=== PATIENT | female | born 1945 | race Caucasian/White ===

== ENCOUNTER 2025-06-29 15:34 | Inpatient (IN) ==
--- NOTE | 2025-06-29 16:43 | Emergency Department Note ---
Impression & Plan Dyspnea on exertion ED Provider Note HISTORY OF PRESENT ILLNESS: Patient is a 79-year-old female presenting with shortness of breath. Patient reports that she has not been feeling well for the last month. Reports that about a month ago she started having pain in her left lower quadrant and was having diarrhea. She states that she has been having progressively worsening weakness over the last month. Denies any measured fevers at home. Reports that she has had progressively worsening shortness of breath and is unable to walk more than a few steps at a time before having to stop and catch her breath. She states that 2 days ago she was trying to bring groceries into the house and it took her 3 hours to unload a few bags of groceries from her car. She denies any cough or recent sick contact exposures. She reports that she has been sleeping anywhere from 14 to 18 hours a day for the last few weeks secondary to profound fatigue and weakness. She states that she went to her primary care provider's office today and she became hypoxic with an ambulatory pulse ox and they referred her to the emergency department. Patient denies any anticoagulation use. She does have an isolated history of a DVT in her right lower extremity. She reports she stopped taking her anticoagulation a number of years ago secondary to having hematuria and hematemesis. ROS: as above PHYSICAL EXAM: Constitutional: Patient appears in no acute distress. HENT: Head: Normocephalic and atraumatic. Eyes: EOMI, PERRL Mouth/Throat: Mucous membranes moist. Neck: Trachea midline. Neck supple. Cardiovascular: RRR, No murmurs, rubs or gallops. Intact distal pulses. Pulmonary/Chest: No respiratory distress. Breath sounds clear and equal bilaterally. Patient is conversationally dyspneic. Tachypneic. She is able to only speak 1 or 2 words at a time before having to pause to catch her breath. Abdominal: Abdomen soft, no tenderness, rebound or guarding. Musculoskeletal: No edema, tenderness or deformity noted. Skin: Warm and dry. No rash, erythema, pallor or cyanosis Psychiatric: Appropriate mood and affect for situation. Neurological: Alert and keenly responsive. CN II-XII grossly intact, moving all extremities equally and fully. MDM: - Vitals signs stable. - History obtained via patient. History as above. - Chronic conditions affecting care: CKD; DM-2; HLD; breast cancer (s/p R mastectomy and chemo) - Differential diagnoses include, but are not limited to: Congestive heart failure; acute coronary syndrome; COPD/asthma exacerbation; pulmonary edema; pulmonary embolism; pneumonia; pneumothorax; viral syndrome - Order placed for continuous cardiac monitoring. At this time, monitor showed rate of 74 bpm with normal sinus rhythm, per my interpretation. - External medical records reviewed. Primary care visit note dated today was reviewed. Patient was seen for shortness of breath and dyspnea on exertion. She had oxygen saturations of 93% during examination at rest and with a 2-minute walk test her heart rate went up to 128 bpm and oxygen saturations down to 92%. She was referred to the emergency department for further evaluation. - EKG image interpreted by myself showed normal rhythm. Rate 83 bpm. QT 338. No acute ischemic changes. - Laboratory workup interpreted by myself showed normal WBC; normal PT/INR; stable electrolytes; elevated anion gap (12); elevated total bilirubin (1.2) with normal AST/ALT; normal troponin; normal BNP - CXR image reviewed by myself is negative for pneumonia, per my interpretation. - CT PE negative for PE. Noted to have coronary atherosclerosis. - Patient ambulated for about 40 feet and had a pulse ox of 90%. She became very tachypneic without respiratory rate of 27 and became tachycardic with a heart rate of 120 bpm. - Discussion was had with caseworker about patient's case and need for admission - Hospitalist, Dr. Solis, consulted for admission at 19:30. Recommended that the patient be given a DuoNeb treatment and Solu-Medrol dosing which is ordered. - [facility] ASSESSMENT AND PLAN: Diagnosis: Dyspnea on exertion Plan: admit Past Med/Surg History Problem List (Updated 06/29/25 @ 19:33 by Kamilah Camacho MD) Dyspnea on exertion (Acute) Hiatal hernia with GERD Vitamin B12 deficiency Osteoarthritis of right knee Urgency-frequency syndrome Urge incontinence of urine Screening mammogram, encounter for Urinary incontinence (Chronic) Medicare annual wellness visit, subsequent Hypokalemia Screening for osteoporosis Left flank pain History of mastectomy Chronic kidney disease, stage III (moderate) Diaphragmatic hernia Diverticulosis Fatty liver Mixed hyperlipidemia 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 RLS (restless legs syndrome) Type 2 diabetes mellitus Vitamin D deficiency Nephrolithiasis (Chronic) Hyperlipidemia Benign essential hypertension CKD stage 2 due to type 2 diabetes mellitus Diabetes mellitus Medical History Breast cancer Nephrolithiasis Surgical History History of varicose vein ligation History of cystocele History of tubal ligation History of repair of rectocele History of lithotripsy History of hysterectomy History of esophagogastroduodenoscopy (EGD) History of colonoscopy History of cholecystectomy History of cataract surgery Family History Mother Heart disease Hypertension Lung cancer Lung disease Cancer Breast cancer Sister Diabetes Cancer Father Diabetes Hypertension Kidney disease Brother Lymphoma Cancer Aunt Breast cancer Denies family history of Ovarian cancer Prostate cancer Myocardial infarction Colorectal cancer Social History Smoking Status: Never smoker Second Hand Exposure: No; Do You Dip or Chew Tobacco: No; Hx Alcohol Use: No Hx Substance Use: No Preferred Language: Sami Communication Ability: Effective Visual Impairment: Partially Limited Hearing Ability: Hard of Hearing Front Worker Required: No marital status: Current Living Situation: Alone How many Children do You have: 2 Feels Safe at Home: Yes Childhood Exposure to Second-Hand Smoke: Yes Diet: regular caffeine: Yes during the past year weight has: remained stable Dental Care, Regularly: No Physical Activity Frequency: 1-2 Times per Week Physical Activity Frequency Comment: rick Henry Seatbelt Use: always Sunscreen Use: Yes Gender Identity: Female Assistive Devices: Glasses Allergies Allergies Allergy/AdvReac Type Severity Reaction Status Date / Time pegfilgrastim [From Neulasta] Allergy Severe COULDN'T Verified 06/29/25 18:57 BREATH, CHEST PAIN, DIZZINESS Home Meds Home Medications Medication Instructions Recorded Confirmed vitamins A,C,[id number]-xxxb-tmvnen 4,296 1 cap PO BID 06/29/25 06/29/25 mcg-226 mg-90 mg capsule (PreserVision AREDS) Previous Rx's Medication Instructions Recorded aspirin 81 mg tablet,delayed 81 mg PO DAILY #90 tabs 06/22/19 release metformin 750 mg tablet,extended 750 mg PO DAILY #90 tabs 12/28/24 release 24 hr mecobalamin (vitamin B12) 10,000 1,000 mcg IM MONTHLY #1 ea 04/19/25 mcg solution for injection Breast prosthesis with Bra #1 ea 04/29/25 Breast prosthesis with Bra #1 ea 04/29/25 blood sugar diagnostic (Accu-Chek #100 ea 06/29/25 Guide test strips) blood-glucose meter (Accu-Chek #1 ea 06/29/25 Guide Me Glucose Meter) glipizide 5 mg tablet, extended 5 mg PO DAILY #90 tabs 06/29/25 release 24 hr lancets (Accu-Chek Softclix #100 ea 06/29/25 Lancets) omeprazole 20 mg tablet,delayed 20 mg PO DAILY #90 tabs 06/29/25 release rosuvastatin 20 mg tablet 20 mg PO DAILY #90 tabs 06/29/25 valsartan 160 mg tablet 160 mg PO DAILY #90 tabs 06/29/25 Results & Data (ED) Vital Signs Vital Signs - 24 hr 06/29/25 15:46 06/29/25 15:46 06/29/25 16:11 Temperature 36.6 C Temperature Source Oral Pulse Rate 82 82 Pulse Rate [Exercises] Pulse Rate [Right Finger] Pulse Rhythm [Right Finger] Pulse Strength [Right Finger] Respiratory Rate 20 Respiratory Rate [Exercises] Respiratory Effort / Characteristics Spontaneous Respiratory Depth Normal Blood Pressure 118/87 Blood Pressure [Right Arm] Blood Pressure Mean 97 Blood Pressure Mean [Right Arm] Blood Pressure Position [Right Arm] Pulse Oximetry 99 Pulse Oximetry [Exercises] Oxygen Delivery Method Sepsis Recent Fever Within 48 Hours No Sepsis New/Unexplained Change in Mental Status No Sepsis Action Taken by Nursing No Action Required 06/29/25 16:31 06/29/25 17:57 06/29/25 18:01 Temperature Temperature Source Pulse Rate 91 H 74 Pulse Rate [Exercises] Pulse Rate [Right Finger] 81 Pulse Rhythm [Right Finger] Regular Pulse Strength [Right Finger] Normal Respiratory Rate 20 18 13 Respiratory Rate [Exercises] Respiratory Effort / Characteristics Labored Short of Breath Respiratory Depth Blood Pressure 125/61 149/112 H Blood Pressure [Right Arm] 100/77 Blood Pressure Mean 94 141 Blood Pressure Mean [Right Arm] 84 Blood Pressure Position [Right Arm] Sitting Pulse Oximetry 99 100 100 Pulse Oximetry [Exercises] Oxygen Delivery Method Room Air Sepsis Recent Fever Within 48 Hours Sepsis New/Unexplained Change in Mental Status Sepsis Action Taken by Nursing 06/29/25 18:31 06/29/25 19:12 Temperature Temperature Source Pulse Rate 83 Pulse Rate [Exercises] 120 H Pulse Rate [Right Finger] Pulse Rhythm [Right Finger] Pulse Strength [Right Finger] Respiratory Rate 16 Respiratory Rate [Exercises] 27 H Respiratory Effort / Characteristics Respiratory Depth Blood Pressure 168/97 H Blood Pressure [Right Arm] Blood Pressure Mean 110 Blood Pressure Mean [Right Arm] Blood Pressure Position [Right Arm] Pulse Oximetry 97 Pulse Oximetry [Exercises] 90 Oxygen Delivery Method Room Air Sepsis Recent Fever Within 48 Hours Sepsis New/Unexplained Change in Mental Status Sepsis Action Taken by Nursing Laboratory Data 06/29/25 15:57 06/29/25 15:57 Lab Results 06/29/25 06/29/25 Range/Units 15:57 16:40 WBC 9.70 (4.8-10.8) K/ul RBC 4.69 (4.20-5.40) M/uL Hgb 14.0 (12.0-16.0) g/dl Hct 42.7 (37.0-47.0) % MCV 91.0 (80.0-100.0) fL MCH 29.9 (25.0-34.0) pg MCHC 32.8 (32.0-36.0) g/dL RDW Std Deviation 41.9 (36.4-46.3) fL RDW Coeff of Ashley 12.9 (11.5-14.5) % Plt Count 358 (130-400) K/uL MPV 10.2 (9.4-12.4) fL Immature Gran % (Auto) 0.2 % Neut % (Auto) 69.3 % Lymph % (Auto) 23.2 % [place] % (Auto) 6.2 % Eos % (Auto) 0.6 % Baso % (Auto) 0.5 % Neut # (Auto) 6.72 H (1.40-6.50) K/uL Lymph # (Auto) 2.25 (1.20-3.40) K/uL [place] # (Auto) 0.60 H (0.11-0.59) K/uL Eos # (Auto) 0.06 (0.00-0.50) K/uL Baso # (Auto) 0.05 (0.00-0.20) K/uL Immature Gran # (Auto) 0.02 (0.01-0.20) K/uL PT 11.1 (9.0-12.0) Seconds INR 1.0 (0.9-1.1) APTT 25 (21-31) Seconds PTT Ratio 0.9 Sodium 139 (136-145) mmol/L Potassium 4.3 (3.5-5.1) mmol/L Chloride 103 (98-107) mmol/L Carbon Dioxide 24 (21-32) mmol/L Anion Gap 12 H (3-11) BUN 18 (6-23) mg/dl Creatinine 1.04 (0.6-1.2) mg/dl Est Cr Clr Drug Dosing 49.5 ml/min eGFR 55.36 BUN/Creatinine Ratio 17.3 (10-20) Glucose 174 H (70-99(Fasting)) mg/dl Calcium 10.1 (8.6-10.3) mg/dl Total Bilirubin 1.2 H (0.2-1.0) mg/dl AST 15 (13-39) U/L ALT 16 (7-52) U/L Alkaline Phosphatase 65 (34-104) U/L Troponin I High Sens 6.6 (0-14) pg/ml B-Natriuretic Peptide 27 (0-100) pg/ml Total Protein 7.7 (6.0-8.3) gm/dl Albumin 4.0 (3.4-5.0) gm/dl Globulin 3.7 (2.5-4.0) gm/dl Albumin/Globulin Ratio 1.1 (0.9-2) Administered Medications Discontinued Medications Ioversol (Optiray 320 125ml) 118 ml IV ONCE ONE Stop: 06/29/25 17:51 Last Admin: 06/29/25 17:50 Dose: 118 ml Documented By: [facility] Data Radiologist's Impression: Chest X-Ray 06/29/25 16:13 Clinical History: Chest pain Technique: A frontal view of the chest was obtained Findings: There are no confluent pulmonary infiltrates. The heart size is within normal limits. No pleural effusion or pneumothorax is seen. There is no definite pulmonary nodule. No fracture is noted. No foreign body is seen Impression: No active disease Electronically signed by Chin Trivedi 06-29-2025 6:43 PM Chest CTA 06/29/25 16:40 Clinical history: Rule out pulmonary embolism Technique: Axial computed tomography images were obtained of the chest after the administration of intravenous contrast according to the CT angiogram protocol Findings: There is no definite sign of pulmonary embolism. There are 2 small nodular opacities in the left lung apex, measuring 2-3 mm. There is a 2 mm nodule in the right lung apex. There are 2 faint 2 mm nodules adjacent to the right minor fissure. There is a 2 mm nodular opacity along the top of the right major fissure. There is mild dependent subsegmental atelectasis in both lower lobes. There is no pleural effusion or pneumothorax. There is no sign of pulmonary fibrosis or other diffuse interstitial process. No endobronchial lesion is seen There is no mediastinal, hilar, or axillary adenopathy. The thoracic aorta appears unremarkable with no sign of aneurysm or dissection. There is no pericardial effusion. There is extensive coronary atherosclerosis The gallbladder has been removed. No fracture is seen. No focal osseous lesion is evident Impression: 1. No definite sign of pulmonary embolism 2. Several small pulmonary nodules, likely benign but indeterminate in nature. A follow-up chest CT could be obtained in 6 months 3. Extensive coronary atherosclerosis Electronically signed by Chin Trivedi 06-29-2025 7:22 PM Discharge Plan Visit Data Chief Complaint: Cardiac Assessment ED Provider: Kamilah Camacho Discharge Problem: Dyspnea on exertion Condition: Fair Forms Stand Alone Forms: [facility] [employer] Prescriptions Prescriptions: No Action (DME) Breast prosthesis with Bra See Rx Instructions .Route .MEDSUPPLY Qty: 1 0RF Rx Instructions: 1 prosthesis and 6 bras (DME) Breast prosthesis with Bra See Rx Instructions .Route .MEDSUPPLY Qty: 1 0RF Rx Instructions: As directed,6 bras and 1 prosthesis aspirin 81 mg tablet,delayed release (DR/EC) 81 mg PO DAILY Qty: 90 3RF PreserVision AREDS 4,296 mcg-226 mg-90 mg capsule 1 cap PO BID glipizide 5 mg tablet extended release 24hr 5 mg PO DAILY Qty: 90 1RF Rx Instructions: patient does not need immediately valsartan 160 mg tablet 160 mg PO DAILY Qty: 90 3RF Rx Instructions: patient does not need immediately omeprazole 20 mg tablet,delayed release (DR/EC) 20 mg PO DAILY Qty: 90 3RF Rx Instructions: patient does not need immediately rosuvastatin 20 mg tablet 20 mg PO DAILY Qty: 90 2RF Rx Instructions: patient does not need immediately (DME) blood-glucose meter [Accu-Chek Guide Me Glucose Mtr] Misc See Rx Instructions .Route Qty: 1 0RF Rx Instructions: use as directed once daily DX:E11.9 (DME) Accu-Chek Guide test strips Strip See Rx Instructions .Route Qty: 100 3RF Rx Instructions: use once daily as directed DX:E11.9 (DME) lancets [Accu-Chek Softclix Lancets] Misc See Rx Instructions .Route Qty: 100 3RF Rx Instructions: use once daily as directed DX:E11.9 metformin 750 mg tablet extended release 24 hr 750 mg PO DAILY Qty: 90 1RF mecobalamin (vitamin B12) 10,000 mcg recon soln 1,000 mcg IM MONTHLY Qty: 1 12RF Rx Instructions: PER PT "DEPENDS ON BLOOD RESULTS" Referrals Referrals: Ottoniel Caldera MD [Primary Care Provider] -
[2025-06-29 16:49] LABS: Hematocrit (blood only) 42.7 % (37.0-47.0); Hemoglobin 14.0 g/dl (12.0-16.0); Immature Granulocytes # (auto) 0.02 K/uL (0.01-0.20); Immature Granulocytes % (auto) 0.2 %; Mean Corpuscular Hemoglobin 29.9 pg (25.0-34.0); Mean Corpuscular Volume 91.0 fL (80.0-100.0); Platelet Count 358 K/uL (130-400); RDW Standard Deviation 41.9 fL (36.4-46.3); Red Blood Count 4.69 M/uL (4.20-5.40); White Blood Count 9.70 K/ul (4.8-10.8)
[2025-06-29 17:01] LABS: Alanine Aminotransferase 16.0 U/L (7-52); Albumin Globulin Ratio 1.1 (0.9-2); Alkaline Phosphatase 65.0 U/L (34-104); Anion Gap 12.0 (3-11); Bilirubin,Total 1.2 mg/dl (0.2-1.0); Blood Urea Nitrogen 18.0 mg/dl (6-23); Calcium 10.1 mg/dl (8.6-10.3); Carbon Dioxide 24.0 mmol/L (21-32); Chloride 103.0 mmol/L (98-107); Creatinine Clr Calc Pharmacy 49.5 ml/min; Globulin 3.7 gm/dl (2.5-4.0); Glucose 174.0 mg/dl (70-99(Fasting)); Potassium 4.3 mmol/L (3.5-5.1); Sodium 139.0 mmol/L (136-145); Total Protein 7.7 gm/dl (6.0-8.3)
[2025-06-29 17:12] LABS: INR 1.0 (0.9-1.1); Partial Thromboplastin Time 25 Seconds (21-31); Prothrombin Time 11.1 Seconds (9.0-12.0)
[2025-06-29] MEDS: OPTIRAY 320 125ml IV ONE (17:50)
--- NOTE | 2025-06-29 18:43 | XRay Report ---
Clinical History: Chest pain Technique: A frontal view of the chest was obtained Findings: There are no confluent pulmonary infiltrates. The heart size is within normal limits. No pleural effusion or pneumothorax is seen. There is no definite pulmonary nodule. No fracture is noted. No foreign body is seen Impression: No active disease Electronically signed by Chin Trivedi 06-29-2025 6:43 PM
--- NOTE | 2025-06-29 19:22 | CT Scan Report ---
Clinical history: Rule out pulmonary embolism Technique: Axial computed tomography images were obtained of the chest after the administration of intravenous contrast according to the CT angiogram protocol Findings: There is no definite sign of pulmonary embolism. There are 2 small nodular opacities in the left lung apex, measuring 2-3 mm. There is a 2 mm nodule in the right lung apex. There are 2 faint 2 mm nodules adjacent to the right minor fissure. There is a 2 mm nodular opacity along the top of the right major fissure. There is mild dependent subsegmental atelectasis in both lower lobes. There is no pleural effusion or pneumothorax. There is no sign of pulmonary fibrosis or other diffuse interstitial process. No endobronchial lesion is seen There is no mediastinal, hilar, or axillary adenopathy. The thoracic aorta appears unremarkable with no sign of aneurysm or dissection. There is no pericardial effusion. There is extensive coronary atherosclerosis The gallbladder has been removed. No fracture is seen. No focal osseous lesion is evident Impression: 1. No definite sign of pulmonary embolism 2. Several small pulmonary nodules, likely benign but indeterminate in nature. A follow-up chest CT could be obtained in 6 months 3. Extensive coronary atherosclerosis Electronically signed by Chin Trivedi 06-29-2025 7:22 PM
--- NOTE | 2025-06-29 19:27 | History & Physical Report ---
Date of Service June 29, 2025 Assessment & Plan (1) Dyspnea on exertion: (2) Type 2 diabetes mellitus: (3) Benign essential hypertension: (4) Vitamin B12 deficiency: Plan Patient is a 79-year-old female with past medical history B12 deficiency, GERD, stage III CKD, type II DM, right LE DVT, breast CA s/p mastectomy, chemo, and radiation. Patient presented due to several months of worsening dyspnea on exertion. CXR and CTA negative, troponin negative. Non-hypoxic on room air at time of admission. Patient is being admitted for further workup including echocardiogram. #dyspnea - H&H at baseline. CXR negative, CTA negative for acute changes. Tropo susan 6.6, BNP 27. EKG with new PACs, otherwise no ischemic changes. Non-hypoxic at time of admission and with clear breath sounds. - covid/flu/rsv swab ordered - mag 1.5, 2g IV ordered; trend mag - given solu-medrol 60mg IV and duo-neb x1 on admission; see if patient improves clinically regarding continuing IV steroids - duo-nebs q2h prn - echocardiogram ordered - incentive spirometry - oxygen prn for O2 < 92% - consider pt/ot evals prior to discharge #RLQ pain - reports RLQ pain and feeling fulling. LFTs WNL. - abd pelvis CT ordered - 1 L LR at 125 ml/hr ordered as patient already given IV contrast with CTA #T2DM - Controlled on glipizide and metformin at home (hold). Most recent A1C 7.9%. - SSI with target BSG range 110-180mg/dL, CF 30 #HTN - continue valsartan #GERD - continue PPI #HLD - continue statin and asa #B12 deficiency - similar symptoms when diagnosed several months ago. H&H stable. #pulmonary nodules - noted on CTA, follow up in out patient setting in 6 months. VTE ppx: Lovenox Dispo: med/tele Admission and Anticipated Discharge Date Admission Date: 06/29/25 History of Present Illness Chief Complaint: dyspnea Primary Care Provider: Ottoniel Caldera MD Patient is a 79-year-old female with past medical history B12 deficiency, GERD, stage III CKD, type II DM, right LE DVT, breast CA s/p mastectomy, chemo, and radiation. Patient presented due to several months of worsening dyspnea on exertion. CXR and CTA negative, troponin negative. Nonhypoxic on room air at time of admission. Patient is being admitted for further workup including echocardiogram. Patient seen at bedside. She was at her PCPs office today due to the dyspnea when they did an ambulatory pulse ox that showed her oxygen in the low 90s. In the ED with ambulation she reportedly had tachycardia (HR 127, and O2 sats dropped in the 90s. Patient is dyspneic while trying to obtain history after speaking only few words. She stated over the past month it has been getting worse and she can only walk a few steps until she feels short of breath. It took her 3 hours the other day to unload groceries. She has been sleeping many hours every night due to fatigue and weakness. She stated she felt similar several months ago when she was started on B12 injections however her B12 is now normal. She was taken off amlodipine, put back on, and now is off amlodipine because her blood pressures have been low. she stated she sometimes has "fuzzy vision" when going from sitting to standing however denies dizziness like the room is spinning. She occasionally has a cough due to her throat feeling dry. She denies any chest pain, orthopnea, abdominal pain, nausea, vomiting, diarrhea, lower extremity edema. She is not a former smoker. Her mother did pass away from lung cancer. She does not use any oxygen at baseline. She is due for her evening medications. She stated she used to take valsartan twice daily however now just takes in the morning because her blood pressures have been low. She does not have any advanced directives however does wish to be DNR/DNI status. Patient is not on anticoagulation after history of right lower extremity DVT in 1993 after having hematuria, hematemesis, epistaxis. Allergies Allergy/AdvReac Type Severity Reaction Status Date / Time pegfilgrastim [From Neulasta] Allergy Severe COULDN'T Verified 06/29/25 18:57 BREATH, CHEST PAIN, DIZZINESS Home Medications Medication Instructions Recorded Confirmed Type aspirin 81 mg tablet,delayed 81 mg PO DAILY #90 tabs 06/22/19 06/29/25 Rx release metformin 750 mg tablet,extended 750 mg PO DAILY #90 tabs 12/28/24 06/29/25 Rx release 24 hr mecobalamin (vitamin B12) 10,000 1,000 mcg IM MONTHLY #1 ea 04/19/25 06/29/25 Rx mcg solution for injection Breast prosthesis with Bra #1 ea 04/29/25 Rx Breast prosthesis with Bra #1 ea 04/29/25 Rx blood sugar diagnostic (Accu-Chek #100 ea 06/29/25 06/29/25 Rx Guide test strips) blood-glucose meter (Accu-Chek #1 ea 06/29/25 06/29/25 Rx Guide Me Glucose Meter) glipizide 5 mg tablet, extended 5 mg PO DAILY #90 tabs 06/29/25 06/29/25 Rx release 24 hr lancets (Accu-Chek Softclix #100 ea 06/29/25 06/29/25 Rx Lancets) omeprazole 20 mg tablet,delayed 20 mg PO DAILY #90 tabs 06/29/25 06/29/25 Rx release rosuvastatin 20 mg tablet 20 mg PO DAILY #90 tabs 06/29/25 06/29/25 Rx valsartan 160 mg tablet 160 mg PO DAILY #90 tabs 06/29/25 06/29/25 Rx vitamins A,C,J-zrtm-ndiuqt 4,296 1 cap PO BID 06/29/25 06/29/25 History mcg-226 mg-90 mg capsule (PreserVision AREDS) Past Med/Surg History Problem List (Updated 06/29/25 @ 19:33 by Kamilah Camacho MD) Dyspnea on exertion (Acute) Hiatal hernia with GERD Vitamin B12 deficiency Osteoarthritis of right knee Urgency-frequency syndrome Urge incontinence of urine Screening mammogram, encounter for Urinary incontinence (Chronic) Medicare annual wellness visit, subsequent Hypokalemia Screening for osteoporosis Left flank pain History of mastectomy Chronic kidney disease, stage III (moderate) Diaphragmatic hernia Diverticulosis Fatty liver Mixed hyperlipidemia 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 RLS (restless legs syndrome) Type 2 diabetes mellitus Vitamin D deficiency Nephrolithiasis (Chronic) Hyperlipidemia Benign essential hypertension CKD stage 2 due to type 2 diabetes mellitus Diabetes mellitus Medical History Breast cancer Nephrolithiasis Surgical History History of varicose vein ligation History of cystocele History of tubal ligation History of repair of rectocele History of lithotripsy History of hysterectomy History of esophagogastroduodenoscopy (EGD) History of colonoscopy History of cholecystectomy History of cataract surgery Family History Mother Heart disease Hypertension Lung cancer Lung disease Cancer Breast cancer Sister Diabetes Cancer Father Diabetes Hypertension Kidney disease Brother Lymphoma Cancer Aunt Breast cancer Denies family history of Ovarian cancer Prostate cancer Myocardial infarction Colorectal cancer Social History Smoking Status: Never smoker Second Hand Exposure: No; Do You Dip or Chew Tobacco: No; Hx Alcohol Use: No Hx Substance Use: No Preferred Language: Latvian Communication Ability: Effective Visual Impairment: Partially Limited Hearing Ability: Hard of Hearing Box Strapper Required: No Beliefs That Will Affect Care: None marital status: Current Living Situation: Alone How many Children do You have: 2 Other Information That Helps Us Care for You: No Feels Safe at Home: Yes Safety Concerns: Feels Safe At This Time Childhood Exposure to Second-Hand Smoke: Yes Diet: regular caffeine: Yes during the past year weight has: remained stable Dental Care, Regularly: No Physical Activity Frequency: 1-2 Times per Week Physical Activity Frequency Comment: rick Henry Seatbelt Use: always Sunscreen Use: Yes Gender Identity: Female Assistive Devices: Denture - Upper, Glasses and Oxygen - Continuous Review of Systems Review of Systems: see HPI Physical Exam Physical Exam: The patient is awake, alert and oriented 3, well developed and well nourished, normocephalic and atraumatic, dyspneic when speaking a few words. HEENT- EOMI, mucous membranes moist. Hearing grossly intact. Heart-normal S1 and S2. No murmurs, rubs or gallops. Lungs-clear bilaterally, no respiratory distress, no accessory muscle use. Abdomen-normal bowel sounds and soft. No ascites noted. Non-tender. Extremities- no clubbing, cyanosis, or edema. Rheumatologic-normal range of motion. Psychiatric-normal affect. Results & Data Results & Data Vital Signs (Past 12 Hours) Vital Signs Temp Pulse Pulse Pulse Resp Resp BP 06/29/25 19:12 120 H 27 H 06/29/25 18:31 83 16 168/97 H 06/29/25 18:01 74 13 149/112 H 06/29/25 17:57 81 18 06/29/25 16:31 91 H 20 125/61 06/29/25 16:11 82 06/29/25 15:46 36.6 C 82 20 118/87 BP Pulse Ox Pulse Ox O2 Del Method 06/29/25 19:12 90 Room Air 06/29/25 18:31 97 06/29/25 18:01 100 06/29/25 17:57 100/77 100 Room Air 06/29/25 16:31 99 06/29/25 16:11 06/29/25 15:46 99 Code Status & VTE Plan Code Status dnr/dni VTE Prophylaxis Plan VTE Prophylaxis will be ordered: Yes Supervising Physician Co-Signing Physician Notes Attending addendum: I have physically seen this patient, have supervised the PEACE's activities, and agree with the H&P unless as otherwise noted. Assessment and Plan: The patient is a 79-year-old female with past medical history including vitamin B12 deficiency, kidney stones, GERD, stage III CKD, diabetes mellitus type 2, right lower extremity DVT, breast cancer status postmastectomy, chemotherapy and radiation. She presents to the emergency department due to several months of worsening dyspnea on exertion. She is acutely short of breath with routine conversation. Workup in the emergency department including negative troponin, negative chest x-ray and CTA of chest that were negative. Patient with pulse ox 99% on room air. She also complains of right lower quadrant abdominal pain and feelings of fullness. Dyspnea/shortness of breath at rest with conversation- Workup in the emergency department including negative chest x-ray, CTA of chest, and troponin COVID/flu/RSV swab negative CT abdomen and pelvis with contrast negative DuoNebs every 2 hours as needed Patient was given Solu-Medrol 60 mg IV and DuoNeb treatment by the ED, with minimal improvement Magnesium 1.5, will receive 2 g of magnesium sulfate IV and repeat in a.m. The patient will be admitted to telemetry for serial cardiac enzymes, serial EKG's, cardiac rhythm monitoring and a 2-D echocardiogram with Dopplers. Incentive spirometry Will likely need PT/OT assessment prior to discharge Right lower quadrant pain- Reports worsening recently over the past several weeks of right lower quadrant pain and feeling of fullness Liver test normal CT abdomen and pelvis negative LR at 125 mL/h x 1 L Diabetes mellitus type 2- Hold glipizide and metformin while in hospital Placed on Accu-Cheks NovoLog SSI as noted Hypertension- Continue losartan GERD- Continue pantoprazole PG Care Time/CCT Total # of Minutes Spent Total Time Spent with Patient: Total time spent is greater than 50% in coordination of care (as documented) at patient's floor/unit and/or counseling patient: Coding Level of Care Code 85901 INT INP/OBS CARE 3/75MIN Diagnoses Dyspnea on exertion R06.09 Type 2 diabetes mellitus without complication, without long-term current use of insulin E11.9 Diabetes mellitus complication status: without complication Diabetes mellitus halfway insulin use: without technician terminal and repeater use Benign essential hypertension I10 Vitamin B12 deficiency E53.8 (2) Type 2 diabetes mellitus Diabetes mellitus complication status: without complication Diabetes mellitus halfway insulin use: without technician terminal and repeater use Qualified Code(s): E11.9 - Type 2 diabetes mellitus without complications
[2025-06-29 20:03] LABS: Magnesium 1.5 mg/dl (1.7-2.4)
[2025-06-29] MEDS: ALBUT/IPRATROP 3MG/0.5MG NEB 3 ML VIAL NEB STA (20:07)
[2025-06-29] MEDS: MAGNESIUM SULFATE / D5W 1 GM/100 ML BAG IV SCH (20:20)
[2025-06-29 20:56] LABS: Influenza A virus by PCR Negative (Neg); Influenza B virus by PCR Negative (Neg); SARS CoV2 RNA(COVID-19) Ceph NEGATIVE (Negative)
[2025-06-29] MEDS: OPTIRAY 320 100ml IV ONE (21:10)
[2025-06-29] MEDS ORDERED: CARBOHYDRATES FOR HYPOGLYCEMIA PO PRN (21:56)
[2025-06-29] MEDS ORDERED: DOCUSATE SODIUM 100 MG CAP PO PRN (21:56)
[2025-06-29] MEDS ORDERED: MELATONIN 3 MG TAB PO PRN (21:56)
[2025-06-29] MEDS ORDERED: DEXTROSE 50% 50 ML SYRINGE IV PRN (21:56)
[2025-06-29] MEDS ORDERED: GLUCOSE 10 TAB/TUBE PO PRN (21:56)
[2025-06-29] MEDS ORDERED: GLUCOSE 40% GEL 15 GM TUBE PO PRN (21:56)
[2025-06-29] MEDS ORDERED: ACETAMINOPHEN 325 MG TAB PO PRN (21:56)
[2025-06-29] MEDS ORDERED: GLUCAGON FOR INJ 1 MG VIAL SQ PRN (21:56)
[2025-06-29] MEDS ORDERED: ONDANSETRON INJ 2 MG/ML 2 ML VIAL IV PRN (21:56)
[2025-06-29] MEDS ORDERED: ALBUT/IPRATROP 3MG/0.5MG NEB 3 ML VIAL NEB PRN (21:56)
[2025-06-29] MEDS: LACTATED RINGER'S 1,000 ML IV SCH (21:57)
[2025-06-29] MEDS: INSULIN ASPART PER UNIT CHARGE SC SCH (22:53)
[2025-06-29] MEDS: ENOXAPARIN INJ 40 MG/0.4 ML SYR SQ SCH (23:39)
--- NOTE | 2025-06-30 00:37 | CT Scan Report ---
Exam(s): CT ABDOMEN + PELVIS W/WO Contrast IV Amt: 90 ml optiray 320 EXAM: CT Abdomen and Pelvis Without and With Intravenous Contrast CLINICAL HISTORY: Reason for exam: abd pain. TECHNIQUE: Axial computed tomography images of the abdomen and pelvis without and with intravenous contrast. CTDI is 55 mGy and DLP is 2846.18 mGy-cm. Automated exposure control was utilized for the study. A dose lowering technique was utilized adhering to the principles of ALARA. CONTRAST: Patient received 90 ml optiray 320 of IV contrast COMPARISON: No relevant prior studies available. FINDINGS: Lung bases: Unremarkable. No mass. No consolidation. ABDOMEN: Liver: Unremarkable. No mass. Gallbladder and bile ducts: Postop changes prior cholecystectomy normal-appearing appendix within the right lower quadrant. No ductal dilation. Pancreas: Unremarkable. No mass. No ductal dilation. Spleen: Unremarkable. No splenomegaly. Adrenals: Unremarkable. No mass. Kidneys and ureters: Unremarkable. No solid mass. No obstructing stones. No hydronephrosis. Stomach and bowel: Diverticulosis without evidence of diverticulitis. No obstruction. PELVIS: Appendix: See above. Bladder: Unremarkable. No mass. No stones. Reproductive: Unremarkable as visualized. ABDOMEN and PELVIS: Intraperitoneal space: Unremarkable. No free air. No significant fluid collection. Bones/joints: No acute fracture. No dislocation. Soft tissues: Unremarkable. Vasculature: Unremarkable. No abdominal aortic aneurysm. Lymph nodes: Unremarkable. No enlarged lymph nodes. IMPRESSION: No acute findings in the abdomen or pelvis. Electronically signed by: Jeyson Krishna MD 06/30/25 00:37 AM
[2025-06-30 07:12] LABS: Hematocrit (blood only) 37.4 % (37.0-47.0); Hemoglobin 12.4 g/dl (12.0-16.0); Immature Granulocytes # (auto) 0.03 K/uL (0.01-0.20); Immature Granulocytes % (auto) 0.4 %; Mean Corpuscular Hemoglobin 30.0 pg (25.0-34.0); Mean Corpuscular Volume 90.3 fL (80.0-100.0); Platelet Count 296 K/uL (130-400); RDW Standard Deviation 41.8 fL (36.4-46.3); Red Blood Count 4.14 M/uL (4.20-5.40); White Blood Count 8.07 K/ul (4.8-10.8)
[2025-06-30 07:44] LABS: Anion Gap 8.0 (3-11); Blood Urea Nitrogen 18.0 mg/dl (6-23); Calcium 9.3 mg/dl (8.6-10.3); Carbon Dioxide 25.0 mmol/L (21-32); Chloride 102.0 mmol/L (98-107); Creatinine Clr Calc Pharmacy 54.5 ml/min; Glucose 289.0 mg/dl (70-99(Fasting)); Magnesium 2.1 mg/dl (1.7-2.4); Potassium 4.5 mmol/L (3.5-5.1); Sodium 135.0 mmol/L (136-145)
--- NOTE | 2025-06-30 08:44 | Hospitalist Progress Note ---
Date of Service June 30, 2025 Assessment & Plan (1) Dyspnea on exertion: Plan In summary this is a 79-year-old female who presented with subacute on chronic dyspnea on exertion; she remains admitted for observation to rule out progressive cardiovascular disease. #Subacute Dyspnea on Exertion No jude cause elucidated at this time; pending TTE to rule out occult heart failure. If without persistent oxygen requirement and/or significant abnormalities noted on TTE, would recommend further outpatient assessment for potential causes of chronic dyspnea #Pulmonary Nodules, Incidental Reassess in the outpatient setting in 6 months Diet: low fat and low sodium DVT ppx: Continue enoxaparin 40 mg SQ daily Access: peripheral IV Code Status: DNR/DNI Admission and Anticipated Discharge Date Admission Date: June 29, 2025 Subjective Ms. Alves is a 79-year-old female whose active medical conditions include CKD stage IIIa, GA SLD, hyperlipidemia, hypertension, type 2 diabetes mellitus complicated by renal insufficiency among other chronic conditions who presented to [facility] on 06/29 due to subacute on chronic dyspnea on exertion. Review of Systems Review of Systems: Constitutional: endorses fatigue associated with recent heat wave; denies fevers, chills, malaise Cardiovascular: denies angina, palpitations, syncope, peripheral edema Pulmonary: endorses improving dyspnea on exertion; denies cough, pleuritic chest pain Gastrointestinal: denies nausea, emesis, dysphagia, regurgitation, dyspepsia, abdominal distension, constipation, diarrhea Genitourinary: denies dysuria, hematuria, urinary incontinence Neurologic: denies focal weakness, paresthesias or numbness Musculoskeletal: denies arthralgias, progressive weakness, recent falls Integumentary: denies new or developing rashes or lesions Physical Exam Physical Exam: General: Adult in no acute distress Vital Signs: Reviewed HEENT: Normocephalic, atraumatic; pupils equally reactive to light, extraocular motions intact; moist mucous membranes Neck: No palpable lymphadenopathy Pulmonary: symmetric chest wall excursion; CTAB Cardiovascular: Regular rate and rhythm with no murmurs, rubs, or gallops; S1 and S2 normal; bilateral radial and posterior tibial pulses 2+; trace bilateral lower extremity edema distal of the mid leg Gastrointestinal: Soft, nondistended Neurologic: CN II-XII grossly intact; no discernible focal weakness nor paresthesias Results & Data Results & Data Vital Signs (Past 12 Hours) Vital Signs Temp Pulse Pulse Resp BP BP Pulse Ox 06/30/25 07:21 100 H 06/30/25 07:09 36.3 C L 76 20 146/82 H 95 06/30/25 03:15 36.5 C 79 18 118/61 95 06/29/25 22:12 06/29/25 22:00 78 06/29/25 21:43 36.3 C L 87 18 136/78 99 06/29/25 21:25 06/29/25 21:01 129/85 06/29/25 20:57 82 24 99 O2 Del Method O2 Flow Rate 06/30/25 07:21 06/30/25 07:09 Nasal Cannula 1 06/30/25 03:15 Nasal Cannula 1 06/29/25 22:12 Nasal Cannula 2 06/29/25 22:00 06/29/25 21:43 Room Air 06/29/25 21:25 Room Air 06/29/25 21:01 06/29/25 20:57 Room Air Laboratory Results 06/30/25 06/30/25 06/30/25 12:02 07:54 07:53 WBC RBC Hgb Hct MCV MCH MCHC RDW Std Deviation RDW Coeff of Ashley Plt Count MPV Immature Gran % (Auto) Neut % (Auto) Lymph % (Auto) [place]oula % (Auto) Eos % (Auto) Baso % (Auto) Neut # (Auto) Lymph # (Auto) [place]oul[place] # (Auto) Eos # (Auto) Baso # (Auto) Immature Gran # (Auto) PT INR APTT PTT Ratio Sodium Potassium Chloride Carbon Dioxide Anion Gap BUN Creatinine Est Cr Clr Drug Dosing eGFR BUN/Creatinine Ratio Glucose POC Glucose 249 H 287 H 313 H* Calcium Magnesium Total Bilirubin AST ALT Alkaline Phosphatase Troponin I High Sens B-Natriuretic Peptide Total Protein Albumin Globulin Albumin/Globulin Ratio SARS-CoV-2 (PCR) Influenza Type A (PCR) Influenza Type B (PCR) RSV (RT-PCR) 06/30/25 06/29/25 06/29/25 05:33 22:01 20:08 WBC 8.07 RBC 4.14 L Hgb 12.4 Hct 37.4 MCV 90.3 MCH 30.0 MCHC 33.2 RDW Std Deviation 41.8 RDW Coeff of Ashley 12.8 Plt Count 296 MPV 10.3 Immature Gran % (Auto) 0.4 Neut % (Auto) 88.4 Lymph % (Auto) 10.4 [place] % (Auto) 0.7 Eos % (Auto) 0.0 Baso % (Auto) 0.1 Neut # (Auto) 7.13 H Lymph # (Auto) 0.84 L [place] # (Auto) 0.06 L Eos # (Auto) 0.00 Baso # (Auto) 0.01 Immature Gran # (Auto) 0.03 PT INR APTT PTT Ratio Sodium 135 L Potassium 4.5 Chloride 102 Carbon Dioxide 25 Anion Gap 8 BUN 18 Creatinine 0.96 Est Cr Clr Drug Dosing 54.5 eGFR 60.94 BUN/Creatinine Ratio 18.8 Glucose 289 H POC Glucose 164 H Calcium 9.3 Magnesium 2.1 Total Bilirubin AST ALT Alkaline Phosphatase Troponin I High Sens B-Natriuretic Peptide Total Protein Albumin Globulin Albumin/Globulin Ratio SARS-CoV-2 (PCR) NEGATIVE Influenza Type A (PCR) Negative Influenza Type B (PCR) Negative RSV (RT-PCR) Negative 06/29/25 06/29/25 16:40 15:57 WBC 9.70 RBC 4.69 Hgb 14.0 Hct 42.7 MCV 91.0 MCH 29.9 MCHC 32.8 RDW Std Deviation 41.9 RDW Coeff of Ashley 12.9 Plt Count 358 MPV 10.2 Immature Gran % (Auto) 0.2 Neut % (Auto) 69.3 Lymph % (Auto) 23.2 [place]oula % (Auto) 6.2 Eos % (Auto) 0.6 Baso % (Auto) 0.5 Neut # (Auto) 6.72 H Lymph # (Auto) 2.25 [place]oula # (Auto) 0.60 H Eos # (Auto) 0.06 Baso # (Auto) 0.05 Immature Gran # (Auto) 0.02 PT 11.1 INR 1.0 APTT 25 PTT Ratio 0.9 Sodium 139 Potassium 4.3 Chloride 103 Carbon Dioxide 24 Anion Gap 12 H BUN 18 Creatinine 1.04 Est Cr Clr Drug Dosing 49.5 eGFR 55.36 BUN/Creatinine Ratio 17.3 Glucose 174 H POC Glucose Calcium 10.1 Magnesium 1.5 L Total Bilirubin 1.2 H AST 15 ALT 16 Alkaline Phosphatase 65 Troponin I High Sens 6.6 B-Natriuretic Peptide 27 Total Protein 7.7 Albumin 4.0 Globulin 3.7 Albumin/Globulin Ratio 1.1 SARS-CoV-2 (PCR) Influenza Type A (PCR) Influenza Type B (PCR) RSV (RT-PCR) Diagnostic Findings Chest X-Ray 06/29/25 16:13 Clinical History: Chest pain Technique: A frontal view of the chest was obtained Findings: There are no confluent pulmonary infiltrates. The heart size is within normal limits. No pleural effusion or pneumothorax is seen. There is no definite pulmonary nodule. No fracture is noted. No foreign body is seen Impression: No active disease Electronically signed by Chin Trivedi 06-29-2025 6:43 PM Chest CTA 06/29/25 16:40 Clinical history: Rule out pulmonary embolism Technique: Axial computed tomography images were obtained of the chest after the administration of intravenous contrast according to the CT angiogram protocol Findings: There is no definite sign of pulmonary embolism. There are 2 small nodular opacities in the left lung apex, measuring 2-3 mm. There is a 2 mm nodule in the right lung apex. There are 2 faint 2 mm nodules adjacent to the right minor fissure. There is a 2 mm nodular opacity along the top of the right major fissure. There is mild dependent subsegmental atelectasis in both lower lobes. There is no pleural effusion or pneumothorax. There is no sign of pulmonary fibrosis or other diffuse interstitial process. No endobronchial lesion is seen There is no mediastinal, hilar, or axillary adenopathy. The thoracic aorta appears unremarkable with no sign of aneurysm or dissection. There is no pericardial effusion. There is extensive coronary atherosclerosis The gallbladder has been removed. No fracture is seen. No focal osseous lesion is evident Impression: 1. No definite sign of pulmonary embolism 2. Several small pulmonary nodules, likely benign but indeterminate in nature. A follow-up chest CT could be obtained in 6 months 3. Extensive coronary atherosclerosis Electronically signed by Chin Trivedi 06-29-2025 7:22 PM Abdomen/Pelvis CT 06/29/25 20:49 Exam(s): CT ABDOMEN + PELVIS W/WO Contrast IV Amt: 90 ml optiray 320 EXAM: CT Abdomen and Pelvis Without and With Intravenous Contrast CLINICAL HISTORY: Reason for exam: abd pain. TECHNIQUE: Axial computed tomography images of the abdomen and pelvis without and with intravenous contrast. CTDI is 55 mGy and DLP is 2846.18 mGy-cm. Automated exposure control was utilized for the study. A dose lowering technique was utilized adhering to the principles of ALARA. CONTRAST: Patient received 90 ml optiray 320 of IV contrast COMPARISON: No relevant prior studies available. FINDINGS: Lung bases: Unremarkable. No mass. No consolidation. ABDOMEN: Liver: Unremarkable. No mass. Gallbladder and bile ducts: Postop changes prior cholecystectomy normal-appearing appendix within the right lower quadrant. No ductal dilation. Pancreas: Unremarkable. No mass. No ductal dilation. Spleen: Unremarkable. No splenomegaly. Adrenals: Unremarkable. No mass. Kidneys and ureters: Unremarkable. No solid mass. No obstructing stones. No hydronephrosis. Stomach and bowel: Diverticulosis without evidence of diverticulitis. No obstruction. PELVIS: Appendix: See above. Bladder: Unremarkable. No mass. No stones. Reproductive: Unremarkable as visualized. ABDOMEN and PELVIS: Intraperitoneal space: Unremarkable. No free air. No significant fluid collection. Bones/joints: No acute fracture. No dislocation. Soft tissues: Unremarkable. Vasculature: Unremarkable. No abdominal aortic aneurysm. Lymph nodes: Unremarkable. No enlarged lymph nodes. IMPRESSION: No acute findings in the abdomen or pelvis. Electronically signed by: Jeyson Krishna MD 06/30/25 00:37 AM PG Care Time/CCT Total # of Minutes Spent Total Time Spent with Patient: Total time spent is greater than 50% in coordination of care (as documented) at patient's floor/unit and/or counseling patient: Coding Level of Care Code 21266 SUB INP/OBS CARE 3/50MIN Diagnoses Dyspnea on exertion R06.09
[2025-06-30] MEDS: ASPIRIN 81 MG ECTAB PO SCH (08:57)
[2025-06-30] MEDS: VALSARTAN 80 MG TAB PO SCH (08:58)
[2025-06-30] MEDS: ROSUVASTATIN CALCIUM 20 MG TAB PO SCH (08:58)
[2025-06-30 10:39] VITALS: TEMP 97.5
[2025-06-30 14:28] VITALS: BP 100/61; RESP 20; O2SAT 99
[2025-06-30 15:38] VITALS: PULSE 81
--- NOTE | 2025-06-30 18:17 | XCELERA ---
[id number]
--- NOTE | 2025-07-01 13:42 | Discharge Summary ---
Discharge Summary Date of Service June 30, 2025 Principal Dx & Hospital Course #1 = Principal Diagnosis (1) Dyspnea on exertion: Plan In summary this is a 79-year-old female who presented with subacute on chronic dyspnea on exertion; she remains admitted for observation to rule out progressive cardiovascular disease. #Subacute Dyspnea on Exertion No jude cause elucidated at this time; TTE was unremarkable with EF of 55-60% and mild diastolic dysfunction. #Pulmonary Nodules, Incidental Reassess in the outpatient setting in 6 months Admission HPI Per Admitting Provider Patient is a 79-year-old female with past medical history B12 deficiency, GERD, stage III CKD, type II DM, right LE DVT, breast CA s/p mastectomy, chemo, and radiation. Patient presented due to several months of worsening dyspnea on exertion. CXR and CTA negative, troponin negative. Nonhypoxic on room air at time of admission. Patient is being admitted for further workup including echocardiogram. Patient seen at bedside. She was at her PCPs office today due to the dyspnea when they did an ambulatory pulse ox that showed her oxygen in the low 90s. In the ED with ambulation she reportedly had tachycardia (HR 127, and O2 sats dropped in the 90s. Patient is dyspneic while trying to obtain history after speaking only few words. She stated over the past month it has been getting worse and she can only walk a few steps until she feels short of breath. It took her 3 hours the other day to unload groceries. She has been sleeping many hours every night due to fatigue and weakness. She stated she felt similar several months ago when she was started on B12 injections however her B12 is now normal. She was taken off amlodipine, put back on, and now is off amlodipine because her blood pressures have been low. she stated she sometimes has "fuzzy vision" when going from sitting to standing however denies dizziness like the room is spinning. She occasionally has a cough due to her throat feeling dry. She denies any chest pain, orthopnea, abdominal pain, nausea, vomiting, diarrhea, lower extremity edema. She is not a former smoker. Her mother did pass away from lung cancer. She does not use any oxygen at baseline. She is due for her evening medications. She stated she used to take valsartan twice daily however now just takes in the morning because her blood pressures have been low. She does not have any advanced directives however does wish to be DNR/DNI status. Patient is not on anticoagulation after history of right lower extremity DVT in 1993 after having hematuria, hematemesis, epistaxis. Discharge Exam General: Adult in no acute distress Vital Signs: Reviewed HEENT: Normocephalic, atraumatic; pupils equally reactive to light, extraocular motions intact; moist mucous membranes Neck: No palpable lymphadenopathy Pulmonary: symmetric chest wall excursion; CTAB Cardiovascular: Regular rate and rhythm with no murmurs, rubs, or gallops; S1 and S2 normal; bilateral radial and posterior tibial pulses 2+; trace bilateral lower extremity edema distal of the mid leg Gastrointestinal: Soft, nondistended Neurologic: CN II-XII grossly intact; no discernible focal weakness nor paresthesias Discharge Plan Discharge Items Patient Disposition: Home - Self-Care Reason For Visit: DYSPNEA WORKUP Discharge Diagnosis: Dyspnea on Exertion, heat intolerance Condition on Discharge: Fair Activity: Per Instructions section Lifting: Gradually increase as tolerated Non-emergency contact: Primary Care Provider Call non-emergency contact if: you have any medication questions and your symptoms worsen Follow-up/Referrals: Ottoniel Caldera MD [Primary Care Provider] - 07/08/25 11:30 am Diet: Low Fat and Low Sodium (2gm) Fluids: 1800ml (7 cups) Addtl Attending Provider Instructions: Recommend close follow up with you primary care physician to discuss half-way medical conditions that may be contributing to your symptoms. Pending Studies at Discharge: No Stand-Alone Forms: My [facility] Medications and DC Order Prescriptions: Continued (DME) Breast prosthesis with Bra See Rx Instructions .Route .MEDSUPPLY Qty: 1 0RF Rx Instructions: 1 prosthesis and 6 bras (DME) Breast prosthesis with Bra See Rx Instructions .Route .MEDSUPPLY Qty: 1 0RF Rx Instructions: As directed,6 bras and 1 prosthesis aspirin 81 mg tablet,delayed release (DR/EC) 81 mg PO DAILY Qty: 90 3RF PreserVision AREDS 4,296 mcg-226 mg-90 mg capsule 1 cap PO BID glipizide 5 mg tablet extended release 24hr 5 mg PO DAILY Qty: 90 1RF Rx Instructions: patient does not need immediately valsartan 160 mg tablet 160 mg PO DAILY Qty: 90 3RF Rx Instructions: patient does not need immediately omeprazole 20 mg tablet,delayed release (DR/EC) 20 mg PO DAILY Qty: 90 3RF Rx Instructions: patient does not need immediately rosuvastatin 20 mg tablet 20 mg PO DAILY Qty: 90 2RF Rx Instructions: patient does not need immediately (DME) blood-glucose meter [Accu-Chek Guide Me Glucose Mtr] Misc See Rx Instructions .Route Qty: 1 0RF Rx Instructions: use as directed once daily DX:E11.9 (DME) Accu-Chek Guide test strips Strip See Rx Instructions .Route Qty: 100 3RF Rx Instructions: use once daily as directed DX:E11.9 (DME) lancets [Accu-Chek Softclix Lancets] Misc See Rx Instructions .Route Qty: 100 3RF Rx Instructions: use once daily as directed DX:E11.9 metformin 750 mg tablet extended release 24 hr 750 mg PO DAILY Qty: 90 1RF mecobalamin (vitamin B12) 10,000 mcg recon soln 1,000 mcg IM MONTHLY Qty: 1 12RF Rx Instructions: PER PT "DEPENDS ON BLOOD RESULTS" Discharge Orders: Discharge Order (Routine); Ordered 06/30/25 Ordered By: Wayne Hardy Admission Data Admit Date/Time: 06/29/25 20:11 Attending Provider: Wayne Hardy Admit Provider: Kaz Solis Primary Care Provider: Ottoniel Caldera Other Interventions: Discharge Summary Assessment (RN) Last Done: 06/30/25 15:31 Hospital Stay Data Consultations 06/29/25 18:37 ED Decision to Admit Stat Diagnostic Imagining Performed 06/29/25 16:40 CT for pulmonary embolism PE [CT angio chest PE protocol] Stat 06/29/25 20:49 CT Abd and Pelvis [CT abdomen pelvis wo/w con] Stat Pending Results Patient Have Any Pending Studies at Discharge: No Discharge Instructions Given to Patient (Per Discharging Provider) Recommend close follow up with you primary care physician to discuss half-way medical conditions that may be contributing to your symptoms. Total Time Total Time Spent Total Time Spent (In Minutes): 55 Coding Level of Care Code INP/OBS EV SAME DAY LV 1,45MIN Diagnoses Dyspnea on exertion R06.09
== END 2025-06-30 17:20 | disposition home or self-care (01) | DRG 204 ==
LOC: ED 15:34 → SUATTDRO 20:11 → 2N 20:11